=== PATIENT | male | born 1995 | race Caucasian/White ===

== ENCOUNTER 2017-11-28 08:02 | Emergency (ER) | payer BC ==
[~2017-11-28] VITALS: Ht 182.9 cm; Wt 72.1 kg
[2017-11-28 08:04] VITALS: Ht 182.9 cm; Wt 72.1 kg
[2017-11-28 11:06] VITALS: BP 133/86
== END 2017-11-28 11:06 | disposition home or self-care (01) ==
LOC: ED 08:02
DX: J45.901 Unspecified asthma with (acute) exacerbation (principal)
CPT/HCPCS: J7512; J7620